=== PATIENT | male | born 1960 | race African-American/Black ===

== ENCOUNTER 2022-10-25 07:55 | Emergency (ER) | payer BC ==
[~2022-10-25] VITALS: Ht 160 cm; Wt 61.2 kg
[2022-10-25] VITALS (8 sets, daily range): BP systolic 123–136; BP diastolic 71–83
[~2022-10-25 07:55] MED LIST: AMOXICILLIN500 MG PO; ROBITUSSIN AC10 ML PO
== END 2022-10-25 09:35 | disposition home or self-care (01) | DRG 179 ==
LOC: ED 07:55
DX: U07.1 COVID-19 (principal); R05.9 Cough, unspecified; R50.9 Fever, unspecified; F17.200 Nicotine dependence, unspecified, uncomplicated